=== PATIENT | male | born 1995 | race Hispanic/Latino ===

== ENCOUNTER 2022-04-24 21:10 | Emergency (ER) | payer MEDICAID ==
[~2022-04-24] VITALS: Ht 167.6 cm; Wt 110.0 kg
[~2022-04-24 21:10] MED LIST: DARVOCET-N 100100 MG OR; MOTRIN400 MG OR; NO HOME MEDS; ULTRAM50 MG OR
[2022-04-24 21:53] VITALS: BP 142/84
[2022-04-24 22:01] VITALS: BP 130/82
[2022-04-24 22:49] LABS: URINE BILIRUBIN - DIPSTICK NEGATIVE (NEGATIVE); URINE BLOOD DIPSTICK TRACE-INTACT (NEGATIVE); URINE COLOR YELLOW; URINE GLUCOSE - DIPSTICK NEGATIVE (NEGATIVE); URINE KETONE NEGATIVE (NEGATIVE); URINE LEUK ESTERASE NEGATIVE (NEGATIVE); URINE PROTEIN - DIPSTICK TRACE mg/dL (NEG-TRACE); URINE SPECIFIC GRAVITY >=1.030; URINE UROBILINOGEN - DIPSTICK 0.2 E.U./dL (0.2)
[2022-04-24 22:49] LABS: HEMATOCRIT 43.1 % (39.0-50.0); HEMOGLOBIN 14.7 g/dl (14.0-18.0); IMMATURE GRANULOCYTES 0.4 % (0.0-5.0); MEAN CELL VOLUME 88.3 fL CALC (80.0-100.0); MEAN CORPUSCULAR HGB 30.1 pG CALC (26.0-32.0); MEAN CORPUSCULAR HGB CONC 34.1 g/dL CAL (32.0-36.0); NEUT# 7.19 thou/uL (1.82-7.42); RED BLOOD COUNT 4.88 mill/uL (4.70-6.10); RED CELL DISTRI WIDTH 12.3 % (11.5-15.5)
[2022-04-24 22:51] LABS: URINE NITRITE - DIPSTICK NEGATIVE (Negative)
[2022-04-24 22:58] LABS: ALBUMIN 4.6 g/dL (3.2-5.0); ALKALINE PHOSPHATASE 87 u/l (38-126); BILIRUBIN, TOTAL 0.4 mg/dL (0.0-1.4); BUN 15 mg/dL (9-20); BUN/CREATININE RATIO 12 (12-20 (CALC)); CARBON DIOXIDE 24 mmol/l (22-30); CHLORIDE 102 mmol/l (95-108); CREATININE 1.2 mg/dL (0.7-1.3); GFR FOR AFR.AMER. > 60 ML/MIN (>=60 (CALC)); GFR OTHER RACES > 60 ML/MIN (>=60 (CALC)); SGOT/AST 36 u/l (17-59); SODIUM 138 mmol/l (137-146); TOTAL PROTEIN 7.9 g/dL (6.3-8.2)
[2022-04-24 23:03] LABS: ANION GAP 16 (6-22 (CALC)); POTASSIUM 3.6 mmol/l (3.5-5.1)
[2022-04-24 23:20] LABS: INTERNATIONAL NORMALIZED RATIO 1.1 RATIO (0.7-1.3); PROTHROMBIN TIME 10.5 SECONDS (9.0-12.5)
[2022-04-24 23:23] LABS: MYOGLOBIN 121 ng/mL (0 - 121)
[2022-04-24 23:30] LABS: D-DIMER 0.22 mg/L (0.19-0.60)
[2022-04-25] MEDS ORDERED: VOLTAREN75 MG PO (00:17)
[2022-04-25 00:24] VITALS: BP 142/84
== END 2022-04-25 00:32 | disposition home or self-care (01) ==
LOC: ED 21:10
PROVIDERS: Family Medicine
DX: R07.89 Other chest pain (principal); M54.2 Cervicalgia
CPT/HCPCS: Q9967